=== PATIENT | female | born 1980 | race Asian ===

== ENCOUNTER 2018-04-17 20:55 | Inpatient (IN) | payer OTHER ==
[~2018-04-17] VITALS: Ht 157.5 cm; Wt 69.9 kg
[~2018-04-17 20:55] MED LIST: LEVO50TA89 PO; PREN1TAB49 PO
[2018-04-17] MEDS ORDERED: LACTATED RINGER'S 1,000 ML IV SCH (21:14)
[2018-04-17] MEDS ORDERED: LACTATED RINGER'S 1,000 ML IV PRN (21:14)
[2018-04-17 21:15] VITALS: Ht 157.5 cm; Wt 69.9 kg
[2018-04-17] MEDS ORDERED: LIDOCAINE 1% (MPF) 30 ML INJ INJ PRN (21:30)
[2018-04-17] MEDS ORDERED: METHYLERGONOVINE 0.2 MG INJ IM PRN (21:30)
[2018-04-17] MEDS ORDERED: OXYTOCIN 30 UNITS/LR 500 ML IV PRN (21:30)
[2018-04-17] MEDS ORDERED: BUTORPHANOL 2 MG INJ IV PRN (21:30)
[2018-04-17] MEDS ORDERED: IBUPROFEN 600 MG TAB PO PRN (21:30)
[2018-04-17] MEDS ORDERED: CARBOPROST 250 MCG INJ IM PRN (21:30)
[2018-04-17] MEDS ORDERED: MISOPROSTOL 200 MCG TAB PR PRN (21:30)
[2018-04-17] MEDS ORDERED: OXYTOCIN 30 UNITS/LR 500 ML IV SCH ×2 (21:30)
--- NOTE | 2018-04-17 22:21 | HP ---
Date/Time of Note Date/Time of Note DATE: 04/17/18 TIME: 22:12 OB - History Hx of Present Free Text/Dictation 37y.o at 39w1d here at triage with c/o uterine contractions in active labor. initial VE /-2 CAT I tracing course was unremarkable. GBS neg admitted for expectant management. approximately 15min after membrane was ruptured old thick mec noted Chief Complaint: in laor Estimated Due Date: Apr 23, 2018 : 2 Para: 1 Spontaneous : 0 Therapeutic : 0 Care: Good Care Ultrasounds: Normal mid trimester US Obstetrical Complications: None Past Family/Social History * Past Medical, Surgical, Family and Obstetric Histories reviewed from chart. Blood Type: B+ Rubella: immune RPR/VDRL: Negative GBS Status: Negative HBsAG: Negative OB Admission Exam Physical Exam HEENT: WNL Heart: Rhythm Normal Lungs: Clear, Equal Abdomen: WNL Extremities: Normal Reflexes: Normal Cervical Dilatation: 7cm Effacement: 75% Station: -2 Membranes: Intact Amniotic Fluid: Unevaluable Heart Rate: 140's Accelerations: Accelerations Present Decelerations: No Decelerations Varibility: Moderate Contractions on Admission: < 5 Minutes Apart Intensity: Moderate Last 72 hours Lab Results CBC & BMP 04/17/18 21:20 OB Assessment/Plan Reason for admission: active labor Other Assessment: A IUP 39w1d in active labor Plan: Expectant Management CLARICE OZUNA MD Apr 17, 2018 22:21
--- NOTE | 2018-04-17 22:26 | LDN ---
Date/Time of Note Date/Time of Note DATE: 04/17/18 TIME: 22:23 Delivery Summary of normal female with yellow thick meconium stained with 8.9 Weeks of Gestation 39w1d Placenta Delivered: Spontaneously Meconium: Thick Episiotomy: No Perineal laceration: 2 Laceration repair: 00 ch gut Anesthesia type: Local Estimated blood loss: 100 Sponge & Needle done & correct: Yes All needle counts correct: Yes Any foreign bodies felt in the: No Delivery Information Sex Infant Sex: female Apgars 1 Minute: 8 5 Minute: 9 Suctioning Nose & mouth suctioned at mely: Yes Delee suction performed: Yes Umbilical Cord Umbilical cord with: 3 Vessels Cord presentations: no nuchal cord Cord Blood was obtained: Yes Mother & Baby Disposition Disposition Mom & Baby to Maternity; Good: Yes Mom transferred to: Other Baby to NICU: No () CLARICE OZUNA MD Apr 17, 2018 22:26
--- NOTE | 2018-04-17 23:41 | TRIAGE ---
OB Triage Datetime Report Generated by CPN: 04/17/2018 23:40 Datetime: 04/17/2018 22:30 Stage of : Recovery Temperature Route: Axillary Pain Assessment Pain Scale: 2 Pain Presence: Intermittent Pain Type: Cramping Pain Location: Abdomen; Perineum Pain Goal: 2 Datetime: 04/17/2018 22:11 Stage of : Recovery Temperature Route: Axillary Pain Assessment Pain Scale: 2 Pain Presence: None/Denies Datetime: 04/17/2018 22:00 Stage of : Recovery Temperature Route: Axillary Pain Assessment Pain Scale: 5 Pain Presence: Intermittent Pain Type: Cramping Pain Location: Perineum Pain Goal: 2 Pain Relief Measures: Comfort Measures Datetime: 04/17/2018 21:27 Labor Evaluation Pattern: Normal: <= 5 Contractions in 10 Minutes Pain Presence: Intermittent Pain Relief Measures: Comfort Measures Pain Assessment Comments: UNABLE TO PROVIDE IV NARCOTICS D/T VAG EXAM Vaginal Exam Dilatation (cms): 10.0 Effacement (%): 100 Station: -2 Exam By: ALVAREZ RN Vaginal Bleeding: None Cervix, Consistency: Soft Cervix, Position: Anterior Presentation 'A': Cephalic Datetime: 04/17/2018 21:04 Vaginal Exam Dilatation (cms): 7.0 Membrane Status: Intact Datetime: 04/17/2018 21:01 Time of Arrival: 04/17/2018 21:21 EGA: 39.1 Arrived By: Wheelchair Arrived From: Home Chief Complaint: UCs since 1100 Movement: Present Contractions: Regular Time Contractions Began: 04/17/2018 11:00 Contractions: q2mins Rupture of Membranes: Denies Vaginal Bleeding: None Vaginal Discharge: Present Abdominal Trauma: Not Applicable Patient Complaints: Contractions; Cramping; Back Pain Time Provider Notified: 04/17/2018 20:54 Provider Notified: Initial Plan: Monitor, VE Datetime: 04/17/2018 20:57 Membrane Status: Ruptured Membranes Ruptured Date/Time: 04/17/2018 20:57 Membranes Rupture Method: Spontaneous Amniotic Fluid Amount: Moderate Amniotic Fluid Odor: None Datetime: 04/17/2018 20:54 Stage of : OB Triage Assessment Type: Triage Maternal Assessment Level of Consciousness: Fully Conscious DTR's/Clonus: DTRs 2+; No Clonus Headache: Denies Blurred Vision: No Respiratory Effort: Unlabored; Regular Rhythm; Equal Expansion Breath Sounds, Left: Clear and Equal Breath Sounds, Right: Clear and Equal Nausea/Vomiting: Denies RUQ Epigastric Pain: Denies Lower Extremities Edema: Bilateral Lower Extremities Degree: 2+ Upper Extremities Edema: None Degree: None Facial Edema: None Fall Risk Assessment History of Falling: (0) No Secondary Diagnosis: (0) No Ambulatory Aid: (0) Bedrest/Nurse Assist IV Therapy: (0) No Gait: (0) Normal/Bedrest/Immobile Mental Status: (0) Oriented to Own Ability Fall Score: 0 Fall Risk Score Definition: No Risk: No action required Vaginal Exam Dilatation (cms): 7.0 Effacement (%): 90 Station: -1 Exam By: JACQUELINE Vigil Membrane Status: Intact Datetime: 04/05/2018 13:22 Membranes Ruptured Date/Time: 04/17/2018 20:20 Membranes Rupture Method: Spontaneous Amniotic Fluid Color: Heavy Meconium Amniotic Fluid Amount: Moderate Amniotic Fluid Odor: None
[2018-04-18 01:15] VITALS: BP 123/66; PULSE 79; RESP 19
[2018-04-18] MEDS ORDERED: OXYTOCIN 30 UNITS/LR 500 ML IV PRN (01:30)
[2018-04-18] MEDS ORDERED: ZOLPIDEM 5 MG TAB PO PRN (01:30)
[2018-04-18] MEDS ORDERED: METHYLERGONOVINE 0.2 MG INJ IM PRN (01:30)
[2018-04-18] MEDS ORDERED: OXYCODONE/ASPIRIN (4.88/325) TAB PO PRN ×2 (01:30)
[2018-04-18] MEDS ORDERED: LANOLIN HPA 1 PKT TOP PRN (01:30)
[2018-04-18] MEDS: IBUPROFEN 600 MG TAB PO SCH ×4 (01:30→17:51)
[2018-04-18] MEDS ORDERED: CARBOPROST 250 MCG INJ IM PRN (01:30)
[2018-04-18] MEDS ORDERED: MISOPROSTOL 200 MCG TAB PR PRN (01:30)
[2018-04-18 03:35] VITALS: BP 105/57; PULSE 87; RESP 20
[2018-04-18] MEDS: WITCH HAZEL/GLYCERIN PAD PR PRN ×2 (05:27→20:43)
[2018-04-18] MEDS: BENZOCAINE 20% 56 ML SPRAY TOP PRN ×2 (05:27→20:42)
[2018-04-18 08:00] VITALS: BP 93/51; PULSE 70; RESP 18
[2018-04-18] MEDS: SENNA/DOCUSATE NA (8.6MG/50MG) TAB PO SCH ×2 (08:57→20:42)
[2018-04-18 12:00] VITALS: BP 106/54; PULSE 72; RESP 18
--- NOTE | 2018-04-18 14:53 | DS ---
Date/Time of Note Date/Time of Note DATE: 04/18/18 TIME: 14:52 Discharge Summary Admission/Discharge Info Admit Date/Time Apr 17, 2018 at 20:56 Discharge Date/Time Discharge Diagnosis term Patient Condition: Stable Hospital Course unremarkable Home Meds Reported Medications Levothyroxine Sodium* (Synthroid*) 50 Mcg Tablet, 50 MCG PO 12/29/11 Vits W-Ca,Fe,Fa(<1MG) () 1 Tab Tablet, 1 TAB PO 12/29/11 Primary Care Provider Care Physician No Primary Pending Labs Laboratory Tests Test 04/17/18 21:20 04/18/18 06:17 04/18/18 06:36 White Blood Count 15.8 15.3 10^3/ul (4.8-10.8) 10^3/ul (4.8-10.8) Red Blood Count 3.88 3.55 10^6/ul (4.20-5.40) 10^6/ul (4.20-5.40 ) Hemoglobin 12.3 11.4 g/dl (12.0-16.0) g/dl (12.0-16.0) Hematocrit 36.2 % (37.0-47.0) 33.4 % (37.0-47.0) Mean Corpuscular 93.3 94.1 Volume fl (82.0-101.0) fl (82.0-101.0) Mean Corpuscular 31.7 pg (29.0-33.0) 32.1 Hemoglobin pg (29.0-33.0) Mean Corpuscular 34.0 34.1 Hemoglobin Concent g/dl (32.0-37.0) g/dl (32.0-37.0) Red Cell 13.6 % (11.5-14.5) 13.3 % (11.5-14.5) Distribution Width Platelet Count 241 199 10^3/UL (140-415) 10^3/UL (140-415) Mean Platelet 10.3 fl (7.4-10.4) 10.3 fl (7.4-10.4) Volume Immature 0.800 0.800 Granulocytes % % (0.001-0.429) % (0.001-0.429) Neutrophils % 82.5 % (39.0-77.0) 80.0 % (39.0-77.0) Lymphocytes % 10.9 % (15.0-51.0) 12.2 % (15.0-51.0) Monocytes % 5.5 % (0.0-11.0) 6.7 % (0.0-11.0) Eosinophils % 0.0 % (0.0-7.0) 0.1 % (0.0-7.0) Basophils % 0.3 % (0.0-2.0) 0.2 % (0.0-2.0) Nucleated Red Blood 0.0 0.0 Cells % /100WBC (0.0-0.0) /100WBC (0.0-0.0) Immature 0.130 0.130 Granulocytes # 10^3/ul (0.0-0.031) 10^3/ul (0.0-0.031 ) Neutrophils # 13.0 12.3 10^3/ul (1.6-7.5) 10^3/ul (1.6-7.5) Lymphocytes # 1.7 1.9 10^3/ul (0.8-2.9) 10^3/ul (0.8-2.9) Monocytes # 0.9 1.0 10^3/ul (0.3-0.9) 10^3/ul (0.3-0.9) Eosinophils # 0.0 0.0 10^3/ul (0.0-0.5) 10^3/ul (0.0-0.5) Basophils # 0.0 0.0 10^3/ul (0.0-0.1) 10^3/ul (0.0-0.1) Nucleated Red Blood 0.0 0.0 Cells # 10^3/ul (0.0-0.0) 10^3/ul (0.0-0.0) Prothrombin Time 11.7 Sec (11.9-14.9) Prothrombin Time 0.9 Ratio INR International 0.85 Normalized Ratio Activated 30.3 Partial Thromboplas Sec (23.0-35.0) t Time Hepatitis B Surface NEGATIVE (NEGATIVE) Antigen Lab Scanned Report [facility] [id number] QUINN CHAVES MD Apr 18, 2018 14:53
[2018-04-18 16:10] VITALS: BP 112/64; PULSE 78; RESP 18
[2018-04-18 19:20] VITALS: BP 110/80; PULSE 75; RESP 18
[2018-04-19] MEDS: IBUPROFEN 600 MG TAB PO SCH ×3 (00:27→11:39)
[2018-04-19 04:19] VITALS: BP 117/65; PULSE 70; RESP 18
[2018-04-19 07:30] VITALS: BP 118/56; PULSE 77; RESP 16
[2018-04-19] MEDS: SENNA/DOCUSATE NA (8.6MG/50MG) TAB PO SCH (08:50)
[2018-04-19] MEDS ORDERED: DIPHTH/TET/ACEL PERTUSS (ADULT) 0.5 ML VIAL IM* ONE (09:00)
[2018-04-19] MEDS: BENZOCAINE 20% 56 ML SPRAY TOP PRN (12:38)
[2018-04-19] MEDS: WITCH HAZEL/GLYCERIN PAD PR PRN (12:38)
== END 2018-04-19 14:22 | disposition home or self-care (01) | DRG 807 ==
LOC: OBT 20:55 → L-D 20:56 → PP1 04-18 01:05
PROVIDERS: ADMIT Obstetrics & Gynecology; ATTEND Obstetrics & Gynecology
PROC: 10E0XZZ Delivery of Products of Conception, External Approach (ICD-10-PCS; principal; 2018-04-17)
PROC: 0KQM0ZZ Repair Perineum Muscle, Open Approach (ICD-10-PCS; 2018-04-17)
DX: O77.0 Labor and delivery complicated by meconium in amniotic fluid (principal); Z37.0 Single live birth; O70.1 Second degree perineal laceration during delivery; Z3A.39 39 weeks gestation of pregnancy; Z23 Encounter for immunization
CPT/HCPCS: 36415; 85025; 85610; 85730; 86592; 86850; 86900; 86901; 87340; 90715; 99464; G0463; J0595; J2210; J2590; J7120